=== PATIENT | male | born 1985 | race Caucasian/White ===

== ENCOUNTER 2016-08-23 06:18 | Emergency (ER) | payer BC ==
[~2016-08-23] VITALS: Ht 167.6 cm; Wt 72.2 kg
[2016-08-23 06:20] VITALS: Ht 167.6 cm; Wt 72.2 kg
--- OUTSIDE RECORDS SUMMARY | 2016-08-23 06:22 | XMS REPORT | Referral Summary ---
Author Author [facility] Organization [facility] Address Unknown Phone Unavailable Care Team Providers Care Test Man Name Role Phone Salinas Mccullough Primary Care Physician [phone] Encounter VC Date(s): 01/28/15 - 01/28/15 [facility] [address] [place] [address] A[place]NA Daugherty [address] Discharge Diagnosis: Kidney stone Discharge Diagnosis: Kidney stone on right side Discharge Disposition: 01-Home or Self Care Attending Physician: Spencer Nolasco JR, MD Vital Signs Most recent to 1 oldest [Reference Range]: Peripheral Pulse 80 bpm Rate [60-100 bpm] (01/28/15 3:44 PM) Blood Pressure 135/92 mmHg [90-140/60-90 mmHg] (01/28/15 3:44 PM) Problem List No data available for this section Allergies, Adverse Reactions, Alerts No Known Medication Allergies Medications naproxen 500 mg oral tablet 500 mg 1 tabs, Oral, BID, # 60 tabs, 0 Refill(s), Pharmacy: [facility] # [id number], 1 tabs Oral BID Start Date: 01/28/15 Status: Ordered Mobile 5 mg-325 mg oral tablet 1 tabs, Oral, q6hr, as needed for pain, # 30 tabs, 0 Refill(s) Start Date: 01/28/15 Stop Date: 02/28/15 Status: Ordered Results No data available for this section Immunizations Vaccine Date Refusal Reason hepatitis B pediatric vaccine 12/09/96 measles/mumps/rubella virus vaccine 12/09/96 poliovirus vaccine, inactivated 11/30/94 tetanus-diphth toxoids (Td) adult/adol 12/09/96 tetanus-diphth toxoids (Td) adult/adol 11/30/94 Procedures No data available for this section Social History Social History Type Response Smoking Status Former smoker; Type: Cigarettes; Number of years: 2 Assessment and Plan Extracted from: Title: Ambulatory Patient Education Author: Spencer Nolasco JR, MD Date : 01/28/15 Follow Up With: Where: When: Salinas Garcia[address]; [place] [address] Business (1) Within 3 to 5 days Comments: Follow Up With: Where: When: Spencer [address]; [place] [address] Business (1) In 1 week 02/04/2015 Comments: Extracted from: Title: Office Visit Note Author: Spencer Nolasco JR, MD Date: 01/28/15 Assessment/Plan 1.Kidney stone, Kidney stone on right side strain all urine. Drink plenty of liquids. Continue taking the Mobile if needed. Scheduled for right renal lithotripsy this coming Saturday. To call me if the stone is passed before the scheduled lithotripsy . Procedures, risks, complications, and follow-up explained to patient with verbalized understanding. Patient instructed to drink at least 8-10 glasses of liquids a day, reduce intake of caffeine and carloz red meat, nuts and too much salted food This procedurewill be done underlocal and IV sedation Ordered: Office Visit Level 4 [facility] [address]
--- OUTSIDE RECORDS SUMMARY | 2016-08-23 06:22 | XMS REPORT | Referral Summary ---
Author Author [facility] Organization [facility] Address Unknown Phone Unavailable Care Team Providers Care Knuckler Name Role Phone Salinas Mccullough Primary Care Physician [phone] Encounter VC Date(s): 01/24/16 - 01/24/16 [facility] [address] [place] [address] Discharge Diagnosis: Right shoulder tendinitis Discharge Diagnosis: Numbness in feet Discharge Disposition: 01-Home or Self Care Attending Physician: Salinas Mccullough DO Admitting Physician: Salinas Mccullough DO Vital Signs Most recent to 1 oldest [Reference Range]: Temperature Tympanic 36.3 degC [36.6-38.1 degC] *LOW* (01/24/16 3:00 PM) Peripheral Pulse 84 bpm Rate [60-100 bpm] (01/24/16 3:00 PM) Blood Pressure 137/92 mmHg [90-140/60-90 mmHg] (01/24/16 3:00 PM) Problem List No data available for this section Allergies, Adverse Reactions, Alerts No Known Medication Allergies Medications ibuprofen 0 Refill(s) Start Date: 08/29/15 Status: Ordered meloxicam 15 mg oral tablet 15 mg 1 tabs, Oral, Daily, # 30 tabs, 4 Refill(s), Pharmacy: [facility] # [id number], 1 tabs Oral Daily,x30 days Start Date: 01/24/16 Stop Date: 06/22/16 Status: Ordered Tylenol Caplet mg, Oral, q4hr, 0 Refill(s) Start Date: 05/23/15 Status: Ordered Results Hematology Most recent to 1 oldest [Reference Range]: WBC [4.8-10.8 10.1 10*3/uL 10*3/uL] (01/24/16 3:55 PM) RBC [4.60-6.20] 4.60 (01/24/16 3:55 PM) Hgb [14.0-18.0 16.0 gm/dL gm/dL] (01/24/16 3:55 PM) Hct [42.0-52.0 %] 43.8 % (01/24/16 3:55 PM) MCV [82.0-99.0 fL] 95.2 fL (01/24/16 3:55 PM) MCH [27.0-32.0 pg] 34.8 pg *HI* (01/24/16 3:55 PM) MCHC [32.0-36.0 36.5 gm/dL gm/dL] *HI* (01/24/16 3:55 PM) RDW [11.5-14.5 %] 12.5 % (01/24/16 3:55 PM) Platelet [150-400 371 10*3/uL 10*3/uL] (01/24/16 3:55 PM) MPV [8.8-14.8 fL] 10.4 fL (01/24/16 3:55 PM) Immature 0.2 % Granulocytes (01/24/16 3:55 PM) [0.0-1.0 %] Neutrophils [51-75 63 % %] (01/24/16 3:55 PM) Lymphocytes [20-46 27 % %] (01/24/16 3:55 PM) Monocytes [4-11 %] 8 % (01/24/16 3:55 PM) Eosinophils [0-4 %] 1 % (01/24/16 3:55 PM) Basophils [0-2 %] 0 % (01/24/16 3:55 PM) Neutro Absolute 6.36 10*3 [1.90-7.00 10*3] (01/24/16 3:55 PM) Lymph Absolute 2.69 10*3 [0.80-3.30 10*3] (01/24/16 3:55 PM) [place] Absolute 0.85 10*3 [0.30-1.00 10*3] (01/24/16 3:55 PM) Eos Absolute 0.11 10*3 [0.00-0.50 10*3] (01/24/16 3:55 PM) Baso Absolute 0.04 10*3 [0.00-0.20 10*3] (01/24/16 3:55 PM) Chemistry Most recent to 1 oldest [Reference Range]: Sodium Lvl [135-144 140 mEq/L mEq/L] (01/24/16 3:55 PM) Potassium Lvl 4.1 mEq/L [3.5-5.2 mEq/L] (01/24/16 3:55 PM) Chloride [99-111 103 mEq/L mEq/L] (01/24/16 3:55 PM) CO2 [23-31 mEq/L] 25 mEq/L (01/24/16 3:55 PM) AGAP [3-20] 12 (01/24/16 3:55 PM) BUN [9-21 mg/dL] 15 mg/dL (01/24/16 3:55 PM) Glucose Lvl [70-99 81 mg/dL mg/dL] (01/24/16 3:55 PM) Creatinine Lvl 0.79 mg/dL [0.72-1.25 mg/dL] (01/24/16 3:55 PM) eGFR [>60 mL/min] >60 mL/min 1 (01/24/16 3:55 PM) Calcium Lvl 10.1 mg/dL [8.9-10.5 mg/dL] (01/24/16 3:55 PM) Albumin Lvl [3.5-5.0 5.0 gm/dL gm/dL] (01/24/16 3:55 PM) Total Protein 7.7 gm/dL [6.1-7.7 gm/dL] (01/24/16 3:55 PM) Globulin [1.8-4.0 2.7 gm/dL gm/dL] (01/24/16 3:55 PM) ALT [0-55 U/L] 22 U/L (01/24/16 3:55 PM) AST [5-34 U/L] 24 U/L (01/24/16 3:55 PM) Alk Phos [40-150 72 U/L U/L] (01/24/16 3:55 PM) Bili Total [0.2-1.2 1.2 mg/dL mg/dL] (01/24/16 3:55 PM) Vitamin B12 Lvl 459 pg/mL [213-816 pg/mL] (01/24/16 3:55 PM) Folate Lvl [7.0-31.4 15.3 ng/mL ng/mL] (01/24/16 3:55 PM) TSH with Reflex Free 2.89 T4 [0.35-4.94] (01/24/16 3:55 PM) Hgb A1c [4.1-5.6 %] 5.1 % (01/24/16 3:55 PM) eAvg Glucose 99.7 mg/dL (01/24/16 3:55 PM) 1Result Comment: Multiply eGFR results by 1.21 for race. Immunizations Vaccine Date Refusal Reason hepatitis B pediatric vaccine 12/09/96 measles/mumps/rubella virus vaccine 12/09/96 poliovirus vaccine, inactivated 11/30/94 tetanus-diphth toxoids (Td) adult/adol 12/09/96 tetanus-diphth toxoids (Td) adult/adol 11/30/94 Procedures No data available for this section Social History Social History Type Response Smoking Status Former smoker; Type: Cigarettes; Number of years: 2 Assessment and Plan Extracted from: Title: Office Visit Note Author: Salinas Mccullough DO Date: 01/24/16 Assessment/Plan Numbness in feet 1. This is a complex patient presentation. 2. Screening labs ordered to rule out organic cause. 3. May need additional testing with Zinc and copper level in addition to inflammatory markers and testing for autoimmune disease. 4. May need neurology consult. 5. We may consider Nortriptyline, gabapentin or Lyrica if symptoms become bothersome. 6. This may be viral presentation. 7. Follow up in two weeks. Ordered: Vitamin D 25 Hydroxy Level Right shoulder tendinitis 1. History and exam consistent with shoulder strain vs tendinitis. 2. Meloxicam 15mg daily. 3. Stretching exercises. 4. If not improving we plan referral to PT vs shoulder specialist. Ordered: meloxicam, 15 mg 1 tabs, Oral, Daily, # 30 tabs, 4 Refill(s), Pharmacy: [facility] #[id number], 1 tabs Oral Daily,x30 days Over 50 minutes were spent with this patient today, visit required complex medical decision.
--- OUTSIDE RECORDS SUMMARY | 2016-08-23 06:22 | XMS REPORT | Referral Summary ---
Author Author [facility] Organization [facility] Address Unknown Phone Unavailable Care Team Providers Care Apprenticeship Consultant Name Role Phone Josevilla Salinas Primary Care Physician [phone] Encounter Date(s): 02/01/16 - 02/01/[address] [facility] [address] [facility] [address] [place], [place] [address] Discharge Diagnosis: Saddle anesthesia Discharge Diagnosis: Bilateral leg numbness Discharge Disposition: 01-Home or Self Care Attending Physician: Simba Richey MD Admitting Physician: Simba Richey MD Vital Signs Most recent to 1 oldest [Reference Range]: Peripheral Pulse 72 bpm Rate [60-100 bpm] (02/01/16 3:26 PM) Blood Pressure 132/90 mmHg [90-140/60-90 mmHg] (02/01/16 3:26 PM) Problem List No data available for this section Allergies, Adverse Reactions, Alerts No Known Medication Allergies Medications gabapentin 300 mg oral capsule 300 mg 1 caps, Oral, BID, # 60 caps, 0 Refill(s), Pharmacy: [facility] # [id number], 1 caps Oral BID Start Date: 01/27/16 Status: Ordered ibuprofen 0 Refill(s) Start Date: 08/29/15 Status: Ordered Tylenol Caplet mg, Oral, q4hr, 0 Refill(s) Start Date: 05/23/15 Status: Ordered Results No data available for [...] Extracted from: Title: Office Visit Note Author: Simba Richey MD Date: 02/01/16 Assessment/Plan Bilateral leg numbness, Saddle anesthesia Examinationremarkable for sensory level T10-12 suggestive of thoracic myelopathy of acute/subacute onset. Will do MRI C-T spine w and w/o no later than tomorrow. If not able to get it soon, or should he develop weakness/gait problems/bladder/bowel control issues will admit for inpatient w/u. Will contact pt tmw after MRI spine has been reviewed. If MRI spine is suggestive of demyelinating disease, MRI brain and LP will be ordered. Patient and his were encouraged to call me should he develop weakness/or bladder/bowel control problems. Possible anatomic localization and differential discussed, all questions were answered.
--- OUTSIDE RECORDS SUMMARY | 2016-08-23 06:22 | XMS REPORT | Referral Summary ---
Author Author [facility] Organization [facility] Address Unknown Phone Unavailable Care Team Providers Care Title Closer Name Role Phone Sadia Salinas Primary Care Physician [phone] Encounter VC Date(s): 02/17/16 - 02/17/[address] [facility] [address] [facility] [address] [place], [place] [address] Discharge Disposition: 01-Home or Self Care Attending Physician: Simba Richey MD Admitting Physician: Simba Richey MD Referring Physician: Simba Richey MD Vital Signs Most recent to 1 oldest [Reference Range]: Peripheral Pulse 80 bpm Rate [60-100 bpm] (02/17/16 1:14 PM) Blood Pressure 116/82 mmHg [90-140/60-90 mmHg] (02/17/16 1:14 PM) Problem List No data available for this section Allergies, Adverse Reactions, Alerts No Known Medication Allergies Medications gabapentin 300 mg oral capsule 300 mg 1 caps, Oral, BID, # 60 caps, 0 Refill(s), Pharmacy: [facility] # [id number], 1 caps Oral BID Start Date: 01/27/16 Status: Ordered Results Chemistry Most recent to 1 oldest [Reference Range]: Total Protein 7.1 gm/dL [6.1-7.7 gm/dL] (02/17/16 2:02 PM) Hep A IgM Negative (02/17/16 2:02 PM) Hep Bs Ag Negative (02/17/16 2:02 PM) Hep C Ab Negative (02/17/16 2:02 PM) Hep B Core IgM Negative (02/17/16 2:02 PM) HIV 1 and 2 Abs Negative (02/17/16 2:02 PM) Immunizations Vaccine Date Refusal Reason hepatitis B [...] Visit Note Author: Simba Richey MD Date: 02/17/16 Assessment/Plan 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 Patient has not had lab work done to rule out systemic infection or inflammatory process or metabolic changes. Recommended to stop by the lab today. Explained to the patient that after idiopathic transverse myelitis risk of recurrence or conversion to Multiple sclerosisis less than 50%, about 20-30%. He needs to complete work up to rule out secondary transverse myelitis. Recovery has been good, he has no weakness or gait problems, recommended to contact me should he develop any weakness Ordered: NIMA Screen Angiotensin Converting Enzyme-[place] Copper Level-[place] Granulocyte Antibody-[place] Hepatitis Panel HIV Antigen/Antibody HTLV-I/-II Antibody-[place] Immunoelectrophoresis, Serum NMO Evaluation w/Reflex-[place] Paraneoplastic Autoantibody Eval-[place] Sjogren's Antibody SM Autoantibody Zinc Level-[place] Time spent with the patient was25 minutes. Greater than 50% of that time was spent counseling the patient, discussing treatment plan and options, answering questions, and follow up plan.
--- OUTSIDE RECORDS SUMMARY | 2016-08-23 06:22 | XMS REPORT | Referral Summary ---
Author Author [facility] Organization [facility] Address Unknown Phone Unavailable Care Team Providers Care Delivery Consultant Name Role Phone Salinas Mccullough Primary Care Physician [phone] Encounter VC Date(s): 05/23/15 - 05/23/15 [facility] [address] [place] [address] Discharge Disposition: 01-Home or Self Care Attending Physician: Salinas Mccullough DO Admitting Physician: Salinas Mccullough DO Vital Signs Most recent to 1 oldest [Reference Range]: Temperature Tympanic 37 degC [36.6-38.1 degC] (05/23/15 8:56 AM) Peripheral Pulse 75 bpm Rate [60-100 bpm] (05/23/15 8:56 AM) Blood Pressure 139/95 mmHg [90-140/60-90 mmHg] (05/23/15 8:56 AM) Problem List No data available for this section Allergies, Adverse Reactions, Alerts No Known Medication Allergies Medications cyclobenzaprine 10 mg oral tablet 10 mg 1 tabs, Oral, Bedtime (once a day), as needed for spasm, # 30 tabs, 0 Refill(s), Pharmacy: [facility] #[id number], 1 tabs Oral Bedtime (once a day), PRN:as needed for spasm Start Date: 05/23/15 Stop Date: 06/21/15 Status: Ordered meloxicam 15 mg oral tablet 15 mg 1 tabs, Oral, Daily, # 30 tabs, 0 Refill(s), Pharmacy: [facility] # [id number], 1 tabs Oral Daily Start Date: 05/23/15 Status: Ordered Tylenol Caplet mg, Oral, q4hr, 0 Refill(s) Start Date: 05/23/15 Status: Ordered Ultram 50 mg oral tablet 50 mg 1 tabs, Oral, q6hr, as needed for pain, # 30 tabs, 0 Refill(s) Start Date: 05/23/15 Stop Date: 06/21/15 Status: Ordered Results No data available for [...] Visit Note Author: Salinas Mccullough DO Date: 05/23/15 Assessment/Plan Acute neck pain 1. Clinical findings consistent with muscle spasms. Pathophysiology of this presentation discussed in detail with the patient. 2. Discontinue ibuprofen. 3. Meloxicam 15 mg daily for 2-4 weeks. 4. Cyclobenzaprine, 10 mg at bedtime for 2-4 weeks. 5. May add Tylenol at thousand milligrams every 8 hours as needed. 6. Continue with heat compression, 20 minutes at a time, 3-4 times per day. 7. Continue with stretching exercises. 8. Ultram, 50 mg every 6 hours as needed for pain not controlled by the above. 9. Follow-up if worsening presentation or no improvement in the next 3-4 days. Ordered: cyclobenzaprine, 10 mg 1 tabs, Oral, Bedtime (once a day), as needed for spasm , # 30 tabs, 0 Refill(s), [id number], 1 tabs Oral Bedtime (once a day),PRN:as needed for spasm meloxicam, 15 mg 1 tabs, Oral, Daily, # 30 tabs, 0 Refill(s), [facility][id number], 1 tabs Oral Daily traMADol, 50 mg 1 tabs, Oral, q6hr, as needed for pain, # 30 tabs, 0 Refill(s) Office Visit Level 4 Est 17914 Osteopathic Manipulative Treatment (Omt); Three To Four Body Regions Involved 67719 Back muscle spasm As above. Ordered: cyclobenzaprine, 10 mg 1 tabs, Oral, Bedtime (once a day), as needed for spasm , # 30 tabs, 0 Refill(s), Pharmacy: [facility] #[id number], 1 tabs Oral Bedtime (once a day),PRN:as needed for spasm meloxicam, 15 mg 1 tabs, Oral, Daily, # 30 tabs, 0 Refill(s), Pharmacy: [facility] #[id number], 1 tabs Oral Daily traMADol, 50 mg 1 tabs, Oral, q6hr, as needed for pain, # 30 tabs, 0 Refill(s) Office Visit Level 4 Est 03577 Osteopathic Manipulative Treatment (Omt); Three To Four Body Regions Involved 11025 Somatic dysfunction of rib region Osteopathic manipulation was done of the cervical and upper thoracic spine in addition to the first rib on the right side. Treatment modalities consisted of soft tissue treatment, muscle energy and HVLA. Patient had improvement in his discomfort prior to dismissal. Somatic dysfunction of thoracic region As above. Ordered: cyclobenzaprine, 10 mg 1 tabs, Oral, Bedtime (once a day), as needed for spasm , # 30 tabs, 0 Refill(s), Pharmacy: [facility] #[id number], 1 tabs Oral Bedtime (once a day),PRN:as needed for spasm meloxicam, 15 mg 1 tabs, Oral, Daily, # 30 tabs, 0 Refill(s), Pharmacy: [facility] #[id number], 1 tabs Oral Daily traMADol, 50 mg 1 tabs, Oral, q6hr, as needed for pain, # 30 tabs, 0 Refill(s) Office Visit Level 4 Est 45355 Osteopathic Manipulative Treatment (Omt); Three To Four Body Regions Involved 08595 Upper back pain As above. Ordered: cyclobenzaprine, 10 mg 1 tabs, Oral, Bedtime (once a day), as needed for spasm , # 30 tabs, 0 Refill(s), Pharmacy: [facility] #[id number], 1 tabs Oral Bedtime (once a day),PRN:as needed for spasm meloxicam, 15 mg 1 tabs, Oral, Daily, # 30 tabs, 0 Refill(s), Pharmacy: [facility] #[id number], 1 tabs Oral Daily traMADol, 50 mg 1 tabs, Oral, q6hr, as needed for pain, # 30 tabs, 0 Refill(s) Office Visit Level 4 Est 56197 Osteopathic Manipulative Treatment (Omt); Three To Four Body Regions Involved [address]
--- OUTSIDE RECORDS SUMMARY | 2016-08-23 06:22 | XMS REPORT | Referral Summary ---
Author Author [facility] Organization [facility] Address Unknown Phone Unavailable Care Team Providers Care Pile Driving Nozzleman Name Role Phone Salinas Mccullough Primary Care Physician [phone] Encounter VC Date(s): 01/28/15 - 01/28/15 [facility] [address] [place] [address] Discharge Diagnosis: Acute abdominal pain in right flank Discharge Diagnosis: Right kidney stone Discharge Disposition: 01-Home or Self Care Attending Physician: Salinas Mccullough DO Admitting Physician: Salinas Mccullough DO Vital Signs Most recent to 1 oldest [Reference Range]: Temperature Tympanic 36.7 degC [36.6-38.1 degC] (01/28/15 1:01 PM) Peripheral Pulse 80 bpm Rate [60-100 bpm] (01/28/15 1:01 PM) Blood Pressure 135/92 mmHg [90-140/60-90 mmHg] (01/28/15 1:01 PM) Problem List No data available for this section Allergies, Adverse Reactions, Alerts No Known Medication Allergies Medications naproxen 500 mg oral tablet 500 mg 1 tabs, Oral, BID, # 60 tabs, 0 Refill(s), Pharmacy: [facility] # [id number], 1 tabs Oral BID Start Date: 01/28/15 Status: Ordered [place] 5 mg-325 mg oral tablet 1 tabs, Oral, q6hr, as needed for pain, # 30 tabs, 0 Refill(s) Start Date: 01/28/15 Stop Date: 02/28/15 Status: Ordered Results Hematology Most recent to 1 oldest [Reference Range]: WBC [5.0-10.0 8.3 10*3/uL 10*3/uL] (01/28/15 1:55 PM) RBC [3.70-5.20] 4.45 (01/28/15 1:55 PM) Hgb [12.0-16.0 15.5 gm/dL gm/dL] (01/28/15 1:55 PM) Hct [40.0-54.0 %] 43.1 % (01/28/15 1:55 PM) MCV [80.0-96.0 fL] 96.9 fL *HI* (01/28/15 1:55 PM) MCH [26.0-34.0 pg] 34.8 pg *HI* (01/28/15 1:55 PM) MCHC [32.0-36.0 36.0 gm/dL gm/dL] (01/28/15 1:55 PM) RDW [0.0-14.5 %] 12.2 % (01/28/15 1:55 PM) Platelet [150-400 378 10*3/uL 10*3/uL] (01/28/15 1:55 PM) MPV [8.8-14.8 fL] 9.7 fL (01/28/15 1:55 PM) Neutrophils [50-70 50 % %] (01/28/15 1:55 PM) Lymphocytes [20-40 40 % %] (01/28/15 1:55 PM) Monocytes [4-8 %] 8 % (01/28/15 1:55 PM) Eosinophils [0-6 %] 1 % (01/28/15 1:55 PM) Basophils [0-2 %] 1 % (01/28/15 1:55 PM) Neutro Absolute 4.16 10*3 [2.50-7.00 10*3] (01/28/15 1:55 PM) Lymph Absolute 3.32 10*3 [1.00-4.00 10*3] (01/28/15 1:55 PM) [place] Absolute 0.68 10*3 [0.20-0.80 10*3] (01/28/15 1:55 PM) Eos Absolute 0.10 10*3 [0.00-0.60 10*3] (01/28/15 1:55 PM) Baso Absolute 0.04 [0.00-0.30] (01/28/15 1:55 PM) Chemistry Most recent to 1 oldest [Reference Range]: Sodium Lvl [135-144 139 mEq/L mEq/L] (01/28/15 1:55 PM) Potassium Lvl 3.7 mEq/L [3.5-5.2 mEq/L] (01/28/15 1:55 PM) Chloride [99-111 105 mEq/L mEq/L] (01/28/15 1:55 PM) CO2 [23-31 mEq/L] 26 mEq/L (01/28/15 1:55 PM) AGAP [3-20] 8 (01/28/15 1:55 PM) BUN [9-21 mg/dL] 12 mg/dL (01/28/15 1:55 PM) Glucose Lvl [70-99 96 mg/dL mg/dL] (01/28/15 1:55 PM) Creatinine Lvl 0.76 mg/dL [0.72-1.25 mg/dL] (01/28/15 1:55 PM) eGFR [>60 mL/min] >60 mL/min 1 (01/28/15 1:55 PM) Calcium Lvl 10.2 mg/dL [8.9-10.5 mg/dL] (01/28/15 1:55 PM) Albumin Lvl [3.5-5.0 4.6 gm/dL gm/dL] (01/28/15 1:55 PM) Total Protein 7.3 gm/dL [6.4-8.3 gm/dL] (01/28/15 1:55 PM) Globulin [1.8-4.0 2.7 gm/dL gm/dL] (01/28/15 1:55 PM) ALT [0-55 U/L] 26 U/L (01/28/15 1:55 PM) AST [5-34 U/L] 19 U/L (01/28/15 1:55 PM) Alk Phos [40-150 70 U/L U/L] (01/28/15 1:55 PM) Bili Total [0.2-1.2 0.9 mg/dL mg/dL] (01/28/15 1:55 PM) 1Result Comment: Multiply eGFR results by 1.21 for race. Urinalysis Most recent to 1 oldest [Reference Range]: UA Color Yellow (01/28/15 2:19 PM) UA Appear Clear (01/28/15 2:19 PM) UA pH [5.0-8.0] 6.0 (01/28/15 2:19 PM) UA Leuk Est Negative [Negative] (01/28/15 2:19 PM) UA Nitrite Negative [Negative] (01/28/15 2:19 PM) UA Protein Negative [Negative] (01/28/15 2:19 PM) UA Glucose Negative [Negative] (01/28/15 2:19 PM) UA Ketones Negative [Negative] (01/28/15 2:19 PM) UA Urobilinogen 0.2 mg/dL (01/28/15 2:19 PM) UA Bili [Negative] Negative (01/28/15 2:19 PM) UA Blood Pos 1+ *ABN* (01/28/15 2:19 PM) UA Spec Grav 1.025 [1.003-1.030] (01/28/15 2:19 PM) Type Voided (01/28/15 2:19 PM) UA WBC [0-4] 0-2 (01/28/15 2:19 PM) UA RBC [0-2] 5-10 *ABN* (01/28/15 2:19 PM) Crystals Amorphous 1 (01/28/15 2:19 PM) UA Mucous Present (01/28/15 2:19 PM) 1Result Comment: Occasional Immunizations Vaccine Date Refusal Reason hepatitis B pediatric vaccine 12/09/96 measles/mumps/rubella virus vaccine 12/09/96 poliovirus vaccine, inactivated 11/30/94 tetanus-diphth toxoids (Td) adult/adol 12/09/96 tetanus-diphth toxoids (Td) adult/adol 11/30/94 Procedures Procedure Date Related Diagnosis Body Site Collection of venous blood by venipuncture 01/28/15 Social History Social History Type Response Smoking Status Former smoker; Type: Cigarettes; Number of years: 2 Assessment and Plan Extracted from: Title: Office Visit Note Author: Salinas Mccullough DO Date: 01/28/15 Assessment/Plan Acute abdominal pain in right flank Pathophysiology of this presentation, and differential diagnosis, discussed in detail with the patient. All questions were answered. 1. Imaging report and lab reviewed from [facility] . 2. KUB today demonstrate a 6 mm kidney stone on the right side. 3. UA was positive for hematuria. 4. CBC was essentially normal. 5. Complete metabolic profile is still pending. 6. His history and symptoms are consistent with kidney stone as the cause of his pain. 7. Patient was referred to urology for consideration of lithotripsy given that the stone is bigger then he will be able to pass. This was explained to the patient, he voiced understanding. 8. Naproxen 500 mg twice a day. 9. Prescription was given for [place] No. 5, one tablet every 6 hours as needed for pain not controlled by the naproxen. Prescription was given for 30 tablets without refill. 10. If his symptoms worsen over the weekend then he was instructed to go to the emergency department. 11. Over an hour was spent [id number] with this patient today to include initial assessment and reevaluation after lab and x-ray. Ordered: Comprehensive Metabolic Panel Right kidney stone As above Ordered: HYDROcodone-acetaminophen, 1 tabs, Oral, q6hr, as needed for pain, # 30 tabs, 0 Refill(s) naproxen, 500 mg 1 tabs, Oral, BID, # 60 tabs, 0 Refill(s), Pharmacy: [facility] #[id number], 1 tabs Oral BID Office Visit Level 5 Est 50708
--- OUTSIDE RECORDS SUMMARY | 2016-08-23 06:22 | XMS REPORT | Referral Summary ---
Author Author [facility] Organization [facility] Address Unknown Phone Unavailable Care Team Providers Care Well Logging Captain Name Role Phone Salinas Mccullough Primary Care Physician [phone] Encounter VC Date(s): 01/28/15 - 01/28/15 [facility] [address] [place] [address] Discharge Diagnosis: Acute abdominal pain in right [...] Reactions, Alerts No Known Medication Allergies Medications meloxicam 15 mg oral tablet 15 mg 1 tabs, Oral, Daily, # 30 tabs, 0 Refill(s), Pharmacy: [facility] # [id number], 1 tabs Oral Daily Start Date: 05/23/15 [...] 3.32 10*3 [1.00-4.00 10*3] (01/28/15 1:55 PM) [place] Absolute 0.68 10*3 [0.20-0.80 10*3] (01/28/15 1:55 [...] 1. Imaging report and lab reviewed from [facility] . 2. KUB today demonstrate a 6 [...] a day. 9. Prescription was given for [place] No. 5, one tablet every 6 hours as needed for pain not controlled by the naproxen. Prescription was given for 30 tablets without refill. 10. If his symptoms worsen over the weekend then he was instructed to go to the emergency department. 11. Over an hour was spent [id number] with this patient today to include initial assessment and reevaluation after lab and x-ray. Ordered: Comprehensive Metabolic Panel Right kidney stone As above Ordered: HYDROcodone-acetaminophen, 1 tabs, Oral, q6hr, as needed for pain, # 30 tabs, 0 Refill(s) naproxen, 500 mg 1 tabs, Oral, BID, # 60 tabs, 0 Refill(s), Pharmacy: [facility] #[id number], 1 tabs Oral BID Office Visit Level 5 Est 53854
--- OUTSIDE RECORDS SUMMARY | 2016-08-23 06:22 | XMS REPORT | Referral Summary ---
Author Author [facility] Organization [facility] Address Unknown Phone Unavailable Care Team Providers Care Veneer Clipper Name Role Phone Salinas Mccullough Primary Care Physician [phone] Encounter VC Date(s): 08/29/15 - 08/29/15 [facility] [address] [place] [address] Discharge Diagnosis: Thoracic region somatic dysfunction Discharge Diagnosis: Cervical somatic dysfunction Discharge Disposition: 01-Home or Self Care Attending Physician: Salinas Mccullough DO Admitting Physician: Salinas Mccullough DO Vital Signs Most recent to 1 oldest [Reference Range]: Peripheral Pulse 83 bpm Rate [60-100 bpm] (08/29/15 10:50 AM) Blood Pressure 130/60 mmHg [90-140/60-90 mmHg] (08/29/15 10:50 AM) SpO2 99 % (08/29/15 10:50 AM) Problem List No data available for this section Allergies, Adverse Reactions, Alerts No Known Medication Allergies Medications cyclobenzaprine 10 mg oral tablet 10 mg 1 tabs, Oral, BID, as needed for spasm, X 15 days, # 30 tabs, 0 Refill(s) , Pharmacy: [facility] #[id number], 1 tabs Oral BID,x15 days,PRN:as needed for spasm Start Date: 08/29/15 Stop Date: 09/13/15 Status: Ordered ibuprofen 0 Refill(s) Start Date: 08/29/15 Status: Ordered meloxicam 15 mg oral tablet 15 mg 1 tabs, Oral, Daily, # 30 tabs, 0 Refill(s), Pharmacy: [id number] # [id number], 1 tabs Oral Daily Start Date: 08/29/15 Status: Ordered [place] 5 mg-325 mg oral tablet 1 tabs, Oral, q6hr, as needed for pain, # 30 tabs, 0 Refill(s) Start Date: 08/29/15 Stop Date: 09/29/15 Status: Ordered Tylenol Caplet mg, Oral, q4hr, [...] Visit Note Author: Salinas Mccullough DO Date: 08/29/15 Assessment/Plan Back pain 1. Clinical finding consistent with muscle spasms of the cervical and thoracic paraspinal muscles mainly in the right side. 2. Cyclobenzaprine 10 mg twice a day for 2 weeks. 3. Meloxicam 15 mg daily for 2-4 weeks. 4. [place] No. 5, one tablet every 6 hours as needed for pain not controlled by the above. 5. Referral to physical therapy for evaluation and treatment of cervical and thoracic pain. Ordered: cyclobenzaprine, 10 mg 1 tabs, Oral, BID, as needed for spasm, X 15 days, # 30 tabs, 0 Refill(s), Pharmacy: [facility] #[id number], 1 tabs Oral BID,x15 days, PRN:as needed for spasm HYDROcodone-acetaminophen, 1 tabs, Oral, q6hr, as needed for pain, # 30 tabs, 0 Refill(s) meloxicam, 15 mg 1 tabs, Oral, Daily, # 30 tabs, 0 Refill(s), Pharmacy: [id number] #[id number], 1 tabs Oral Daily Office Visit Level 3 Est 19568 Osteopathic Manipulative Treatment (Omt); Three To Four Body Regions Involved 79388 Cervical somatic dysfunction 1. OMT done of the cervical and thoracic spine with treatment modalities to include soft tissue treatment, muscle energy and HVLA. Muscle spasms of neck As above. Ordered: cyclobenzaprine, 10 mg 1 tabs, Oral, BID, as needed for spasm, X 15 days, # 30 tabs, 0 Refill(s), Pharmacy: [facility] #[id number], 1 tabs Oral BID,x15 days, PRN:as needed for spasm HYDROcodone-acetaminophen, 1 tabs, Oral, q6hr, as needed for pain, # 30 tabs, 0 Refill(s) meloxicam, 15 mg 1 tabs, Oral, Daily, # 30 tabs, 0 Refill(s), Pharmacy: [facility] #[id number], 1 tabs Oral Daily Office Visit Level 3 Est 90010 Osteopathic Manipulative Treatment (Omt); Three To Four Body Regions Involved 63971 Neck pain on right side As above. Ordered: cyclobenzaprine, 10 mg 1 tabs, Oral, BID, as needed for spasm, X 15 days, # 30 tabs, 0 Refill(s), Pharmacy: [facility] #[id number], 1 tabs Oral BID,x15 days, PRN:as needed for spasm HYDROcodone-acetaminophen, 1 tabs, Oral, q6hr, as needed for pain, # 30 tabs, 0 Refill(s) meloxicam, 15 mg 1 tabs, Oral, Daily, # 30 tabs, 0 Refill(s), Pharmacy: [facility] #[id number], 1 tabs Oral Daily Office Visit Level 3 Est 56851 Osteopathic Manipulative Treatment (Omt); Three To Four Body Regions Involved 00907 Thoracic region somatic dysfunction As above.
--- OUTSIDE RECORDS SUMMARY | 2016-08-23 06:22 | XMS REPORT | Referral Summary ---
Author Author [facility] Organization [facility] Address Unknown Phone Unavailable Care Team Providers Care Improvement Engineer Name Role Phone Salinas Mccullough Primary Care Physician [phone] Encounter VC Date(s): 01/26/16 - 01/26/16 [facility] [address] [place] [address] [place] [id number] Discharge Diagnosis: Neuropathy, lumbosacral (radicular) Discharge Disposition: 01-Home or Self Care Attending Physician: Salinas Mccullough DO Admitting Physician: Salinas Mccullough DO Vital Signs Most recent to 1 oldest [Reference Range]: Temperature Tympanic 36.8 degC [36.6-38.1 degC] (01/26/16 11:21 AM) Peripheral Pulse 88 bpm Rate [60-100 bpm] (01/26/16 11:21 AM) Respiratory Rate 17 br/min [14-20 br/min] (01/26/16 11:21 AM) Blood Pressure 120/80 mmHg [90-140/60-90 mmHg] (01/26/16 11:21 AM) SpO2 97 % (01/26/16 11:21 AM) Problem List No data available for this section Allergies, Adverse Reactions, Alerts No Known Medication Allergies Medications ibuprofen 0 Refill(s) Start Date: 08/29/15 Status: Ordered meloxicam 15 mg oral tablet 15 mg 1 tabs, Oral, Daily, # 30 tabs, 4 Refill(s), Pharmacy: [facility] # [id number], 1 tabs Oral Daily,x30 days Start Date: [...] Visit Note Author: Salinas Mccullough DO Date: 01/26/16 Assessment/Plan 1.Neuropathy, lumbosacral (radicular) 1. Recent labs reviewed in detail with patient. Values were all essentially normal. 2. The distribution of his numbness raises concerns for lesion at the level of L4-S1 base on the dermatomal distribution of his symptoms. 3. MRI of theLumbar spine order for later today and is pending. 4. EMG studies of lower exts wereordered and are pending. 5. Based on the MRI report, he may not need the EMG, we will notify the patient as soon as report is available. 6. Patient advised to follow up in the ER immediately if he is unable to void or starts developing weakness to lower exts. He voice understanding. 7. Patient may need neurosurgical consult. Ordered: Office Visit Level 4 Est 43081
--- OUTSIDE RECORDS SUMMARY | 2016-08-23 06:22 | XMS REPORT | Referral Summary ---
Author Author [facility] Organization [facility] Address Unknown Phone Unavailable Care Team Providers Care Shaper Set Up Operator Name Role Phone Salinas Mccullough Primary Care Physician [phone] Encounter VC Date(s): 01/28/15 - 01/28/15 [facility] [address] [place] [address] [place] [address] Discharge Diagnosis: Kidney stone Discharge Diagnosis: Kidney [...] Daily, # 30 tabs, 0 Refill(s), Pharmacy: [facility] # [id number], 1 tabs Oral Daily Start Date: 05/23/15 [...] 01/28/15 Follow Up With: Where: When: Salinas Mccullough [address] [place] [address]; Via [place], [place] [id number] Business (1) Within 3 to 5 days Comments: Follow Up With: Where: When: Spencer Nolasco [address] [place] [address] Drive; Via [facility] [place] [address] Business (1) In 1 week 02/04/2015 Comments: Extracted from: Title: Office Visit Note Author: Spencer Nolasco JR, MD Date: 01/28/15 Assessment/Plan 1.Kidney stone, Kidney stone on right side strain all urine. Drink plenty of liquids. Continue taking the [place] if needed. Scheduled for right renal lithotripsy [...] IV sedation Ordered: Office Visit Level 4 New [address]4750
--- OUTSIDE RECORDS SUMMARY | 2016-08-23 06:22 | XMS REPORT | Referral Summary ---
Author Author [facility] Organization [facility] Address Unknown Phone Unavailable Care Team Providers Care Flatbed Driver Name Role Phone Salinas Mccullough Primary Care Physician [phone] Encounter VC Date(s): 02/17/15 - 02/17/15 [facility] [address] [place] [address] [place] [id number] Discharge Disposition: 01-Home or Self Care Attending Physician: Spencer Nolasco JR, MD Admitting Physician: Spencer Nolasco JR, MD Referring Physician: Salinas Mccullough DO Vital Signs Most recent to 1 oldest [Reference Range]: Peripheral Pulse 80 bpm Rate [60-100 bpm] (02/17/15 9:53 AM) Blood Pressure 118/82 mmHg [90-140/60-90 mmHg] (02/17/15 9:53 AM) Problem List No data available for this section Allergies, Adverse Reactions, Alerts No Known Medication Allergies Medications No Known Medications Results No data available for this section [...] Author: Spencer Nolasco JR, MD Date : 02/17/15 Family Medicine Kidney Stones Kidney stones (urolithiasis) are deposits that form inside your kidneys. The intense pain is caused by the stone moving through the urinary tract. When the stone moves, the ureter goes into spasm around the stone. The stone is usually passed in the urine. CAUSES A disorder that makes certain neck glands produce too much parathyroid hormone (primary hyperparathyroidism). A buildup of uric acid crystals, similar to gout in your joints. Narrowing (stricture) of the ureter. A kidney obstruction present at (congenital obstruction). Previous surgery on the kidney or ureters. Numerous kidney infections. SYMPTOMS Feeling sick to your stomach (nauseous). Throwing up (vomiting). Blood in the urine (hematuria). Pain that usually spreads (radiates) to the groin. Frequency or urgency of urination. DIAGNOSIS Taking a history and physical exam. Blood or urine tests. CT scan. Occasionally, an examination of the inside of the urinary bladder ( cystoscopy) is performed. TREATMENT Observation. Increasing your fluid intake. Extracorporeal shock wave lithotripsyThis is a noninvasive procedure that uses shock waves to break up kidney stones. Surgery may be needed if you have severe pain or persistent obstruction. There are various surgical procedures. Most of the procedures are performed with the use of small instruments. Only small incisions are needed to accommodate these instruments, so recovery time is minimized. The size, location, and chemical composition are all important variables that will determine the proper choice of action for you. Talk to your health care provider to better understand your situation so that you will minimize the risk of injury to yourself and your kidney. HOME CARE INSTRUCTIONS Drink enough water and fluids to keep your urine clear or pale yellow. This will help you to pass the stone or stone fragments. Strain all urine through the provided strainer. Keep all particulate matter and stones for your health care provider to see. The stone causing the pain may be as small as a grain of salt. It is very important to use the strainer each and every time you pass your urine. The collection of your stone will allow your health care provider to analyze it and verify that a stone has actually passed. The stone analysis will often identify what you can do to reduce the incidence of recurrences. Only take [id number] or prescription medicines for pain, discomfort, or fever as directed by your health care provider. Make a follow-up appointment with your health care provider as directed. Get follow-up X-rays if required. The absence of pain does not always mean that the stone has passed. It may have only stopped moving. If the urine remains completely obstructed, it can cause loss of kidney function or even complete destruction of the kidney. It is your responsibility to make sure X- rays and follow-ups are completed. Ultrasounds of the kidney can show blockages and the status of the kidney. Ultrasounds are not associated with any radiation and can be performed easily in a matter of minutes. SEEK MEDICAL CARE IF: You experience pain that is progressive and unresponsive to any pain medicine you have been prescribed. SEEK IMMEDIATE MEDICAL CARE IF: Pain cannot be controlled with the prescribed medicine. You have a fever or shaking chills. The severity or intensity of pain increases over 18 hours and is not relieved by pain medicine. You develop a new onset of abdominal pain. You feel faint or pass out. You are unable to urinate. MAKE SURE YOU: Understand these instructions. Will watch your condition. Will get help right away if you are not doing well or get worse. Document Released: 04/08/2006 Document Revised: 12/09/2013 Document Reviewed: [facility] Patient Information 2015 [place]. This information is not intended to replace advice given to you by your health care provider. Make sure you discuss any questions you have with your health care provider. Follow Up With: Where: When: Spencer Nolasco [address] [place] [address] Drive; [place] [address] [employer] [place] [employer] (1) In 6 months 08/19/2015 Comments: Follow Up With: Where: When: [place] [address]; [place] [address] [place] (1) Within 3 to 5 days Comments: Extracted from: Title: Office Visit Note Author: Spencer Nolasco JR, MD Date: 02/17/15 Assessment/Plan Kidney stone status post right ureteral lithotripsy. I reviewed the images of a KUB x-ray done today and I could not see any stone on the right kidney. I will see this patient again in 6 months. Patient is given instructions to drink at least 8-10 glasses of liquids a day , reduce intake of caffeine red meat nuts and too much salted food Ordered: Postoperative Est 51174
--- OUTSIDE RECORDS SUMMARY | 2016-08-23 06:22 | XMS REPORT | Referral Summary ---
Author Author [facility] Organization [facility] Address Unknown Phone Unavailable Care Team Providers Care Patent Prosecution Paralegal Name Role Phone JoseSalinas driver Primary Care Physician [phone] Encounter VC Date(s): 02/14/16 - 02/14/16 [facility] [address] [place] [address] [phone] Discharge Disposition: 01-Home or Self Care Attending Physician: Simba Richey MD Admitting Physician: Simba Richey MD Vital Signs Most recent to 1 oldest [Reference Range]: Temperature Skin 36.6 degC [36-37 degC] (02/14/16 2:25 PM) Peripheral Pulse 84 bpm Rate [60-100 bpm] (02/14/16 2:25 PM) Respiratory Rate 20 br/min [14-20 br/min] (02/14/16 2:25 PM) Blood Pressure 121/82 mmHg [90-140/60-90 mmHg] (02/14/16 2:25 PM) SpO2 97 % (02/14/16 10:40 AM) Problem List No data available for this section Allergies, Adverse Reactions, Alerts No Known Medication Allergies Medications gabapentin 300 mg oral capsule 300 mg 1 caps, Oral, BID, # 60 caps, 0 Refill(s), Pharmacy: [facility] # [id number], 1 caps Oral BID Start Date: 01/27/16 Status: Ordered Results Hematology Most recent to 1 oldest [Reference Range]: WBC [4.8-10.8 7.6 10*3/uL 10*3/uL] (02/14/16 9:04 AM) RBC [4.60-6.20] 4.65 (02/14/16 9:04 AM) Hgb [14.0-18.0 16.6 gm/dL gm/dL] (02/14/16 9:04 AM) Hct [42.0-52.0 %] 45.6 % (02/14/16 9:04 AM) MCV [82.0-99.0 fL] 98.1 fL (02/14/16 9:04 AM) MCH [27.0-32.0 pg] 35.7 pg *HI* (02/14/16 9:04 AM) MCHC [32.0-36.0 36.4 gm/dL gm/dL] *HI* (02/14/16 9:04 AM) RDW [11.5-14.5 %] 12.9 % (02/14/16 9:04 AM) Platelet [150-400 360 10*3/uL 10*3/uL] (02/14/16 9:04 AM) MPV [9.4-12.3 fL] 10.3 fL (02/14/16 9:04 AM) Immature 0.1 % Granulocytes (02/14/16:04 AM) [0.0-1.0 %] Neutrophils [51-75 62 % %] (02/14/16 9:04 AM) Lymphocytes [20-46 28 % %] (02/14/16 9:04 AM) Monocytes [4-11 %] 7 % (02/14/16 9:04 AM) Eosinophils [0-4 %] 2 % (02/14/16 9:04 AM) Basophils [0-2 %] 1 % (02/14/16 9:04 AM) Neutro Absolute 4.72 10*3 [1.90-7.00 10*3] (02/14/16 9:04 AM) Lymph Absolute 2.12 10*3 [0.80-3.30 10*3] (02/14/16 9:04 AM) [place] Absolute 0.56 10*3 [0.30-1.00 10*3] (02/14/16 9:04 AM) Eos Absolute 0.14 10*3 [0.00-0.50 10*3] (02/14/16 9:04 AM) Baso Absolute 0.05 10*3 [0.00-0.20 10*3] (02/14/16 9:04 AM) Nucleated RBC 0.0 /100 WBC Automated [0 /100 (02/14/16 9:04 AM) WBC] Coagulation Most recent to 1 oldest [Reference Range]: INR [0.9-1.2] 1.0 (02/14/16 9:05 AM) PTT [25.0-35.0 29.9 seconds seconds] (02/14/16 9:05 AM) Microbiology Reports TEST: Cerebrospinal Fluid Culture and Smear STATUS: Order in Progress BODY SITE: SOURCE: Cerebrospinal Fluid COLLECTED DATE/TIME: 02/14/16 10:00 AM Gram Smear No white blood cells No microorganisms observed OIF=Oil Immersion Field LPF=Low Power Field Immunizations Vaccine Date Refusal Reason hepatitis B pediatric vaccine 12/09/96 measles/mumps/rubella virus vaccine 12/09/96 poliovirus vaccine, inactivated 11/30/94 tetanus-diphth toxoids (Td) adult/adol 12/09/96 tetanus-diphth toxoids (Td) adult/adol 11/30/94 Procedures Procedure Date Related Diagnosis Body Site Spinal puncture, lumbar, diagnostic.. 02/14/16 Social History Social History Type Response Smoking Status Former smoker; Type: Cigarettes; Number of years: 2 Assessment and Plan No data available for this section
--- OUTSIDE RECORDS SUMMARY | 2016-08-23 06:22 | XMS REPORT | Referral Summary ---
Author Author [facility] Organization [facility] Address Unknown Phone Unavailable Care Team Providers Care U.[place]. Representative Name Role Phone Salinas Mccullough Primary Care Physician [phone] Encounter VC Date(s): 02/02/15 - 02/02/15 [facility] [address] [place] [address] AYANNA Daugherty [id number] Discharge Disposition: 01-Home or Self Care Attending Physician: Spencer Nolasco JR, MD Admitting Physician: Spencer Nolasco JR, MD Vital Signs No data available for this section Problem List No data available for this section Allergies, Adverse Reactions, Alerts No Known Medication Allergies Medications meloxicam 15 mg oral tablet 15 mg 1 tabs, Oral, Daily, # 30 tabs, 0 Refill(s), Pharmacy: [facility] # [id number], 1 tabs Oral Daily Start Date: 05/23/15 Status: Ordered Tylenol Caplet mg, Oral, q4hr, 0 Refill(s) Start Date: 05/23/15 Status: Ordered Results No data available for this section Immunizations Vaccine Date Refusal Reason hepatitis B pediatric vaccine 12/09/96 measles/mumps/rubella virus vaccine 12/09/96 poliovirus vaccine, inactivated 11/30/94 tetanus-diphth toxoids (Td) adult/adol 12/09/96 tetanus-diphth toxoids (Td) adult/adol 11/30/94 Procedures Procedure Date Related Diagnosis Body Site Lithotripsy, extracorporeal shock wave.. 02/02/15 Social History Social History Type Response Smoking Status Former smoker; Type: Cigarettes; Number of years: 2 Assessment and Plan No data available for this section
--- OUTSIDE RECORDS SUMMARY | 2016-08-23 06:22 | XMS REPORT | Referral Summary ---
Author Author [facility] Organization [facility] Address Unknown Phone Unavailable Care Team Providers Care Sod Farmer Name Role Phone Salinas Mccullough Primary Care Physician [phone] Encounter VC Date(s): 02/17/15 - 02/17/15 [facility] [address] [place] [address] AYANNA Daugherty [id number] Discharge Disposition: 01-Home or Self Care [...] # 30 tabs, 0 Refill(s) , Pharmacy: [facility] #[id number], 1 tabs Oral BID,x15 days,PRN:as needed for spasm Start Date: 08/29/15 Stop Date: 09/13/15 Status: Ordered ibuprofen 0 Refill(s) Start Date: 08/29/15 Status: Ordered meloxicam 15 mg oral tablet 15 mg 1 tabs, Oral, Daily, # 30 tabs, 0 Refill(s), Pharmacy: [facility] # [id number], 1 tabs Oral Daily Start Date: 08/29/15 Status: Ordered [place] 5 mg-325 mg oral tablet 1 tabs, [...] reduce the incidence of recurrences. Only take [id number] or prescription medicines for pain, discomfort, or [...] Released: 04/08/2006 Document Revised: 12/09/2013 Document Reviewed: ExitCare Patient Information 2015 [employer]. This information is not intended to replace advice given to you by your health care provider. Make sure you discuss any questions you have with your health care provider. Follow Up With: Where: When: Spencer Nolasco [address] [place] [address] Drive; [place] [address] Business (1) In 6 months 08/19/2015 Comments: Follow Up With: Where: When: [address]; [facility] AYANNA Galvez [id number] Business (1) Within 3 to 5 days [...] too much salted food Ordered: Postoperative Est [id number]
--- OUTSIDE RECORDS SUMMARY | 2016-08-23 06:23 | XMS REPORT | Continuity of Care Document ---
Author Author [facility] Organization [facility] Address Unknown Phone Unavailable Allergies Active Description Code Type Severity Reaction Onset Reported/Identified Relationship to Patient Clinical Status Yes No Known Medication Allergies NKMA N/A N/A 01/28/2015 Medications Problems Procedures Results Test Result Range CBC With Platelet and Differential - 01/24/16 15:55 Absolute Basophils 0.04 10*3 0.00-0.20 Absolute Eosinophils 0.11 10*3 0.00-0.50 Absolute Lymphocytes 2.69 10*3 0.80-3.30 Absolute Monocytes 0.85 10*3 0.30-1.00 Absolute Neutrophils 6.36 10*3 1.90-7.00 Basophils 0 % 0-2 Eosinophils 1 % 0-4 HCT 43.8 % 42.0-52.0 HGB 16.0 g/dL 14.0-18.0 Immature Granulocytes 0.2 % 0.0-1.0 Lymphocytes 27 % 20-46 MCH 34.8 pg 27.0-32.0 MCHC 36.5 g/dL 32.0-36.0 MCV 95.2 fL 82.0-99.0 Monocytes 8 % 4-11 MPV 10.4 fL 8.8-14.8 Neutrophils 63 % 51-75 Platelet Count 371 K/uL 150-400 RBC 4.60 10*6/uL 4.60-6.20 RDW 12.5 % 11.5-14.5 WBC 10.1 K/uL 4.8-10.8 Comprehensive Metabolic Panel (CMP) - 01/24/16 15:55 Albumin 5.0 g/dL 3.5-5.0 Alkaline Phosphatase 72 U/L 40-150 ALT (SGPT) 22 U/L 0-55 Anion Gap 12 NA 3-20 AST (SGOT) 24 U/L 5-34 Bilirubin Total 1.2 mg/dL 0.2-1.2 BUN 15 mg/dL 9-21 Calcium 10.1 mg/dL 8.9-10.5 Chloride 103 mEq/L 99-111 CO2 25 mEq/L 23-31 Creatinine 0.79 mg/dL 0.72-1.25 Globulin 2.7 g/dL 1.8-4.0 Glucose 81 mg/dL 70-99 Potassium 4.1 mEq/L 3.5-5.2 Protein 7.7 g/dL 6.1-7.7 Sodium 140 mEq/L 135-144 eGFR - 01/24/16 15:55 eGFR >60 mL/min >60 TSH with Reflex Free T4 - 01/24/16 15:55 TSH with Reflex Free T4 2.89 uIU/mL 0.35- 4.94 B12 and Folate - 01/24/16 15:55 Folate 15.3 ng/mL 7.0-31.4 Vitamin B12 459 pg/mL 213-816 Hemoglobin A1C - 01/24/16 15:55 Hemoglobin A1C 5.1 % 4.1-5.6 Estimated Average Glucose - 01/24/16 15:55 Estimated Average Glucose 99.7 mg/dL C-Reactive Protein - 01/24/16 15:55 C-Reactive Protein <0.5 mg/dL <0.5 Sedimentation Rate - 01/24/16 15:55 Sedimentation Rate 3 mm/h 0-15 RPR - 01/24/16 15:55 RPR Non-reactive NA Vitamin D, 25-Hydroxy - 01/24/16 15:55 25-Hydroxy D Total 43 ng/mL 30-74 25-Hydroxy D2 <7 ng/mL 25-Hydroxy D3 43 ng/mL CBC With Platelet and Differential - 02/14/16 09:04 Absolute Basophils 0.05 10*3 0.00-0.20 Absolute Eosinophils 0.14 10*3 0.00-0.50 Absolute Lymphocytes 2.12 10*3 0.80-3.30 Absolute Monocytes 0.56 10*3 0.30-1.00 Absolute Neutrophils 4.72 10*3 1.90-7.00 Basophils 1 % 0-2 Eosinophils 2 % 0-4 HCT 45.6 % 42.0-52.0 HGB 16.6 g/dL 14.0-18.0 Immature Granulocytes 0.1 % 0.0-1.0 Lymphocytes 28 % 20-46 MCH 35.7 pg 27.0-32.0 MCHC 36.4 g/dL 32.0-36.0 MCV 98.1 fL 82.0-99.0 Monocytes 7 % 4-11 MPV 10.3 fL 9.4-12.3 Neutrophils 62 % 51-75 Nucleated RBC Automated 0.0 /100 WBC Platelet Count 360 K/uL 150-400 RBC 4.65 10*6/uL 4.60-6.20 RDW 12.9 % 11.5-14.5 WBC 7.6 K/uL 4.8-10.8 PTT/PT (INR) - 02/14/16 09:05 INR 1.0 NA 0.9-1.2 Lyme Disease Serology, CSF - 02/14/16 10:00 Lyme Disease Serology, CSF Negative NA Negative Multiple Sclerosis Profile - 02/14/16 10:00 IgG, CSF 2.7 mg/dL <=8.1 VDRL, CSF - 02/14/16 10:00 VDRL, CSF Negative NA Negative Angiotensin Converting Enzyme CSF - 02/14/16 10:00 Angiotensin Converting Enzyme CSF 1.4 U/L 0.0-2.5 NMO-IgG, CSF - 02/14/16 10:00 NMO-IgG, CSF Negative NA Negative Paraneoplastic AAB Eval, CSF - 02/14/16 10:00 AGNA-1, CSF Negative titer <1:2 Amphiphysin Ab, CSF Negative titer <1:2 CABRERA-1, CSF Negative titer <1:2 CABRERA-2, CSF Negative titer <1:2 CABRERA-3, CSF Negative titer <1:2 CRMP-5-IgG, CSF Negative titer <1:2 CLOTHES DRIER ASSEMBLER-1, CSF Negative titer <1:2 CLOTHES DRIER ASSEMBLER-2, CSF Negative titer <1:2 CLOTHES DRIER ASSEMBLER-Tr, CSF Negative titer <1:2 Paraneoplastic Interpretation, CSF SEE BELOW NA Reflex Added None. NA VICENTE - 02/17/16 14:02 VICENTE 25 U/L 8 - 53 Copper, Serum - 02/17/16 14:02 Copper, S 0.94 mcg/mL Zinc, Serum - 02/17/16 14:02 Zinc, S 0.68 mcg/mL HTLV I/II Ab - 02/17/16 14:02 HTLV I/II Ab Negative NA Negative NMO Evaluation - 02/17/16 14:02 NMO/AQP4 IgG Negative NA Negative Granulocyte Ab - 02/17/16 14:02 Granulocyte Ab Negative NA Paraneoplastic AAB Eval S - 02/17/16 14:02 Interpretive comments SEE BELOW NA ACh Ganglionic Neur Ab 0.00 nmol/L <= 0.02 ACh Rec. Binding Ab 0.00 nmol/L <=0.02 AGNA-1 Negative titer <1:240 Amphiphysin Ab, S Negative titer <1:240 CABRERA-1, Serum Negative titer <1:240 CABRERA-2, Serum Negative titer <1:240 CABRERA-3, Serum Negative titer <1:240 CRMP-5-IgG, S Negative titer <1:240 Neuronal (V-G) K+ Channel AB 0.00 nmol/L <=0.02 N-Type Ca Channel Ab 0.01 nmol/L <=0.03 P/Q Ca Channel Ab 0.00 nmol/L <=0.02 CLOTHES DRIER ASSEMBLER-1, Serum Negative titer <1:240 CLOTHES DRIER ASSEMBLER-2, Serum Negative titer <1:240 CLOTHES DRIER ASSEMBLER-Tr, Serum Negative titer <1:240 Striational Ab, S Negative titer <1:120 Reflex test added None. NA Encounters ACCT No. Visit Date/Time Discharge Status Pt. Type Provider Facility Loc./Unit Complaint [id number] 02/17/2016 12:56:00 2015 23:59:00 DIS Outpatient Simba Richey [facility] N SF Neuro FOLLOW UP AFTER LP [id number] 02/01/2016 15:23:00 2015 23:59:00 DIS Outpatient Simba Richey [facility] N SF Neuro NPV NUMBNESS [place] B[address] DR DEGROOT [id number] 01/26/2016 11:19:00 2015 23:59:00 DIS Outpatient Salinas Degroot [facility] New FM numbness tingling [id number] 01/24/2016 14:51:00 2015 23:59:00 DIS Outpatient Salinas Degroot [facility] New FM TCPA FEET NUMBNESS AND TINGL[place] X3 DAYS [id number] 08/29/2015 10:49:00 2015 23:59:00 DIS Outpatient Salinas Degroot [facility] New FM neck and back pain [id number] 02/17/2015 09:36:00 2014 23:59:00 DIS Outpatient Spencer Nolasco [facility] New Uro post op [id number] 01/28/2015 15:09:00 2014 23:59:59 CLS Outpatient Spencer Nolasco [facility] New Uro abdominal pain [id number] 01/28/2015 12:50:00 2014 23:59:59 CLS Outpatient Salinas Degroot [facility] New FM NPT EST CARE ABD PAIN [id number] 02/14/2016 08:27:00 Document Registration [id number] 05/23/2015 08:53:00 ACT Outpatient Salinas Degroot [facility] New FM neck and back pain
--- NOTE | 2016-08-23 06:28 | NUR ---
REPORT TO BRENDA CROSS
--- NOTE | 2016-08-23 06:34 | NUR ---
DR CHAPARRO IN
[2016-08-23] MEDS ORDERED: NORMAL SALINE 1,000 ML IV ONE (06:45)
[2016-08-23 06:47] LABS: BLOOD, URINE 3+ (NEGATIVE); COLOR,URINE YELLOW (YELLOW); LEUKOCYTE ESTERASE ,URINE NEGATIVE (NEGATIVE); NITRITE,URINE NEGATIVE (NEGATIVE); UROBILINOGEN,URINE 0.2 EU/DL (NORMAL)
[2016-08-23 06:49] LABS: BASOPHILS % (AUTO) 0.4 % (0-2); EOSINOPHILS # (AUTO) 0.2 T/MM3 (0-0.5); EOSINOPHILS % (AUTO) 2.3 % (0-4); HCT - HEMATOCRIT 44.8 % (41-53); IMMATURE GRANULOCYTE # (AUTO) 0.01 T/MM3 (0.00-0.03); IMMATURE GRANULOCYTE % (AUTO) 0.1 % (0.0-0.5); LYMPHOCYTES # (AUTO) 2.5 T/MM3 (1-4.8); MEAN CORPUSCULAR HGB CONC(MCHC 35.7 GM/DL (31-37); MEAN PLATELET VOLUME 10.1 UM3 (9.4-12.4); MONOCYTES # (AUTO) 0.5 T/MM3 (0-0.8); MONOCYTES % (AUTO) 6.4 % (0-9.0); NEUTROPHILS #(AUTO)-ABSOLUTE 4.6 T/MM3 (1.8-7.7); NEUTROPHILS % (AUTO) 58.8 % (33-66); RED BLOOD COUNT 4.57 M/MM3 (4.50-5.90); WBC - WHITE BLOOD COUNT 7.8 T/MM3 (4.5-11.0)
[2016-08-23 06:57] LABS: ALBUMIN 4.5 G/DL (3.5-5.0); ALBUMIN/GLOBULIN RATIO 1.4 RATIO (1.1-2.2); ALKALINE PHOSPHATASE 76 U/L (38-126); ALT (SGPT) 47 U/L (21-72); ANION GAP 14 MEQ/L (5-15); AST (SGOT) 24 U/L (17-59); BUN/CREATININE RATIO 19 RATIO (6-26); CALCIUM 9.4 MG/DL (8.4-10.2); CHLORIDE 105 MEQ/L (98-107); CO2 - CARBON DIOXIDE 28 MEQ/L (22-30); CREATININE 0.7 MG/DL (0.8-1.5); GLOMERULAR FILTRATION RATE 132; GLUCOSE 116 MG/DL (75-110); POTASSIUM 4.2 MEQ/L (3.6-5); SODIUM 147 MEQ/L (134-144); TOTAL PROTEIN 7.7 G/DL (6.3-8.2)
--- NOTE | 2016-08-23 07:03 | NUR ---
RETURNED FROM RADIOLOGY
[2016-08-23 07:04] LABS: BACTERIA,URINE NEGATIVE (NEGATIVE); CALCIUM OXALATE CRYSTALS,UR MODERATE; MUCUS,URINE PRESENT
--- OUTSIDE RECORDS SUMMARY | 2016-08-23 07:10 | XMS REPORT | Continuity of Care Document ---
Author Author [facility] Organization [facility] Address Unknown Phone Unavailable Allergies Active Description [...] titer <1:2 CRMP-5-IgG, CSF Negative titer <1:2 POTABLE WATER TREATMENT OPERATOR-1, CSF Negative titer <1:2 POTABLE WATER TREATMENT OPERATOR-2, CSF Negative titer <1:2 POTABLE WATER TREATMENT OPERATOR-Tr, CSF Negative titer <1:2 Paraneoplastic Interpretation, CSF [...] P/Q Ca Channel Ab 0.00 nmol/L <=0.02 POTABLE WATER TREATMENT OPERATOR-1, Serum Negative titer <1:240 POTABLE WATER TREATMENT OPERATOR-2, Serum Negative titer <1:240 POTABLE WATER TREATMENT OPERATOR-Tr, Serum Negative titer <1:240 Striational Ab, S Negative titer <1:120 Reflex test added None. NA Encounters ACCT No. Visit Date/Time Discharge Status Pt. Type Provider Facility Loc./Unit Complaint [id number] 02/17/2016 12:56:00 2015 23:59:00 DIS Outpatient Simba Richey [facility] N SF Neuro FOLLOW UP AFTER LP [id number] 02/01/2016 15:23:00 2015 23:59:00 DIS Outpatient Simba Richey [facility] N SF Neuro NPV NUMBNESS [place] [address] DR DEGROOT [id number] 01/26/2016 11:19:00 2015 23:59:00 DIS Outpatient Salinas Degroot [facility] New FM numbness tingling [id number] 01/24/2016 14:51:00 2015 23:59:00 DIS Outpatient Salinas Degroot [facility] New FM TCPA FEET NUMBNESS AND TINGLING X3 DAYS [id number] 08/29/2015 10:49:00 2015 23:59:00 DIS Outpatient Salinas Degroot [facility] New FM neck and back pain [id number] 02/17/2015 09:36:00 2014 23:59:00 DIS Outpatient Spencer Nolasco [facility] New Uro post op [id number] 01/28/2015 15:09:00 2014 23:59:59 CLS Outpatient Spencer Nolasco [facility] New Uro abdominal pain [id number] 01/28/2015 12:50:00 2014 23:59:59 CLS Outpatient Salinas Degroot [facility] New FM NPT EST CARE ABD PAIN [id number] 02/14/2016 08:27:00 Document Registration [id number] 05/23/2015 08:53:00 ACT Outpatient Salinas Degroot [facility] New FM neck and back pain
--- NOTE | 2016-08-23 07:44 | ERPDOC ---
Departure Disposition Decision Date: August 23, 2016 Disposition Decision Time: 07:56 Disposition: 01 DISCHARGED HOME, SELF-CARE Impression Impression Impression: Primary Impression: Kidney stone Additional Impression: Abdominal pain Abdominal location: left upper quadrant Qualified Codes: R10.12 - Left upper quadrant pain Severity: Moderate Condition: Improved Seen By: Physician only Referrals: JOE DERGOOT DO (Family) Patient Instructions: Kidney Stones (ED) Problems/Meds/Labs Reviewed?: Yes Medications reviewed and manag: Yes Additional Instructions: Zofran 4 mg tablet every 6 hours as needed for nausea. Percocet 5 mg tablet, one to 2 tablets every 6 hours as needed for pain. Flomax 0.4 mg tablet daily. Until stone is passed. Strongly recommend that you see a urologist as this issue her second kidney stone and he will likely have more. Follow up care ordered?: Yes Mental Status: Alert, Oriented Scripts Ondansetron HCl (Ondansetron HCl) 4 Mg Tablet 1 TAB PO Q6HPRN Y for NAUSEA, #30 TAB 1 Refill Prov: DEBRA CHAPARRO MD 08/23/16 Oxycodone HCl/Acetaminophen (Percocet 5-325 mg Tablet) 5-325 Tablet 1-2 TAB PO QID for PAIN, #15 TAB Take 1 tablet, by mouth, 4 times a day. Prov: DEBRA CHAPARRO MD 08/23/16 Tamsulosin HCl (Flomax) 0.4 Mg Capsule 0.4 MG PO HS, #30 CAP Take 1 capsule, by mouth, one time a day at BEDTIME. Prov: DEBRA CHAPARRO MD 08/23/16 HPI - Abdominal Pain General Chief Complaint: Flank Pain Stated Complaint: BACK LEFT SIDE PAIN Time Seen by Provider: 06:27 HPI - Abdominal Pain Initial Comments 30-year-old male presents with left sided flank pain for the last week. He did have one previous kidney stone which was 6 mm on the right side and had to be treated with lithotripsy. He has had some blood in his urine, pain intermittently at this time he has very little pain. No fevers, no chills, no nausea or vomiting. No dysuria. Pain radiates around to the front and into his scrotum. Allergies: Coded Allergies: No Known Drug Allergies (Verified Allergy, Unknown, 07/04/08) Past History Patient Medical History Problem List Updates: e kidney stone Patient Surgical History Lithotripsy Vaccines Hx Influenza Vaccination: No Hx Pneumococcal Vaccination: No Hx Tetanus, Diptheria, Pertuss: Yes (07/04/08) Social History Smoking Status: Never smoker Substance Use Type: does not use Alcohol Intake: occasionally Record Review Pertinent history updated: Yes Review of Systems GI Upper Abdomen: see HPI General: see HPI Musculoskeletal General: see HPI All other Systems All Other Systems: Reviewed and Negative Physical Exam General General Nourishment: well nourished, well developed, appears stated age, no acute distress General Body Habitus: well groomed Vitals and Pain First Documented Vital Signs Date Time Temp Pulse Resp B/P Pulse Ox O2 Delivery O2 Flow Rate FiO2 08/23/16 06:20 98.8 85 16 137/96 100 Room Air Weight: Kilograms: 72.200 Height (feet): 5 Height (inches): 6.00 Triage Pain Scale: Normal Exams: Head: Normocephalic w/o trauma Chest/Resp: Clear all phillips, with good airflow, and symmetry bilaterally CV: Regular rate and rhythm, without murmur or gallop, Pulses 2+ all extremities, capillary refill, <2 seconds all ext., no pedal edema noted Abdomen: Bowel sounds positive, soft, non-tender, non-distended, no hepatosplenomegaly, masses or bruits noted Neurologic: Patient is alert, and oriented, cranial nerves, motor/sensory/ cerebellar, exams w/o gross deficits, to observation Psychiatric: Patient exhibits, appropriate attention, emotion and affect Differential Diagnoses Considering: Appendicitis, Bowel Obstruction, Constipation, Gastroenteritis, GI Bleed, Pancreatitis, Pyelonephritis, Renal Colic, Other (kidney stone) Progress Results/Orders Orders Procedure Category Date Status Time Iv Lock (Ed Only) EDM 08/23/16 Transmitted 06:27 Cbc W/Auto LAB 08/23/16 Complete Diff-Reflex Manual 06:27 Cmp - Comprehensive LAB 08/23/16 Complete Metabolic 06:27 Normal Saline (Normal PHA 08/23/16 Complete Saline Iv) 06:45 UA, LAB 08/23/16 Complete Dip&Micro(Complete) & 06:31 Ct Renal W/O Contrast CT 08/23/16 Taken 06:27 Lab Results Laboratory Tests Test 08/23/16 06:31 White Blood Count 7.8T/MM3 Red Blood Count 4.57M/MM3 Hemoglobin 16.0GM/DL Hematocrit 44.8% Mean Corpuscular Volume 98.0UM3 Mean Corpuscular Hemoglobin 35.0UUG Mean Corpuscular Hemoglobin Concent 35.7GM/DL RDW Standard Deviation 44.5FL Platelet Count 344T/MM3 Mean Platelet Volume 10.1UM3 Immature Granulocyte % (Auto) 0.1% Neutrophils (%) (Auto) 58.8% Lymphocytes (%) (Auto) 32.0% Monocytes (%) (Auto) 6.4% Eosinophils (%) (Auto) 2.3% Basophils (%) (Auto) 0.4% Absolute Immature Granulocyte (auto 0.01T/MM3 Absolute Neutrophils (auto) 4.6T/MM3 Absolute Lymphocytes (auto) 2.5T/MM3 Absolute Monocytes (auto) 0.5T/MM3 Absolute Eosinophils (auto) 0.2T/MM3 Absolute Basophils (auto) 0.0T/MM3 Urine Collection Type Voided-not cc-midstr Urine Color Yellow Urine Turbidity Clear Urine pH 5.5 Urine Specific [place] 1.020 Urine Protein Negative Urine Glucose (UA) Negative Urine Ketones Negative Urine Blood 3+ Urine Nitrite Negative Urine Bilirubin Negative Urine Urobilinogen 0.2EU/DL Urine Leukocyte Esterase Negative Urine RBC 5-10/HPF Urine WBC 1-3/HPF Urine Calcium Oxalate Crystals Moderate Urine Bacteria Negative Urine Mucus Present Urine Culture Indicated Cult not indicated Turbidity < 20 Sodium Level 147MEQ/L Potassium Level 4.2MEQ/L Chloride Level 105MEQ/L Carbon Dioxide Level 28MEQ/L Anion Gap 14MEQ/L Blood Urea Nitrogen 13.0MG/DL Creatinine 0.7MG/DL Glomerular Filtration Rate Calc 132 BUN/Creatinine Ratio 19RATIO Glucose Level 116MG/DL Calculated Osmolality 283MOSM/KG Calcium Level 9.4MG/DL Total Bilirubin 0.70MG/DL Icterus Index < 2 Aspartate Amino Transf (AST/SGOT) 24U/L Alanine Aminotransferase (ALT/SGPT) 47U/L Alkaline Phosphatase 76U/L Total Protein 7.7G/DL Albumin 4.5G/DL Globulin 3.2G/DL Albumin/Globulin Ratio 1.4RATIO Chemistry Specimen Hemolysis < 15 Medications Current ED Medications Sodium Chloride (Normal Saline IV) 1,000 ml @ 1,000 mls/hr Q1H ONCE IV Last administered on 5/4/17at 06:30; Start 08/23/16 at 06:45; Stop 08/23/16 at 07:44; Status DC Progress Progress Patient was given 1 L normal saline did not require pain medication during his visit, until he was preparing to leave.. He had appropriate lab values, CT scan of abdomen pelvis showed 3 mm stone left side. He did have blood in his urine. We'll discharge him with Flomax, a small amount of narcotic for pain, and nausea medication. Recommend he follow up with urology as he has had a previous stone. Patient did have an increase in pain prior to discharge. He was given 30 mg Toradol IV and Percocet 5 mg by mouth. DEBRA CHAPARRO MD August 23, 2016 07:44
--- NOTE | 2016-08-23 07:57 | DI ---
Indication: ITS.REASON: abdominal pain, history of kidney stone PROCEDURE: CT RENAL W/O CONTRAST: Encounter: Initial Comparison: None Technique: Axial CT images were performed through the abdomen and pelvis without intravenous contrast. Coronal and sagittal two-dimensional reformats. Automated Exposure Control and Iterative Reconstruction dose reducing techniques were utilized. Findings: The lung bases are clear. The unenhanced contours of the liver are unremarkable. The gallbladder, spleen, pancreas and adrenal glands are normal. Right kidney appears normal. Left kidney shows mild to moderate hydronephrosis with a tiny stone in the lower pole. There is mild to moderate left hydroureter to the level of an obstructing 4 mm proximal ureteral stone at the L4-L5 level. Bladder is normal. Prostate and rectum are unremarkable. No free fluid. No evidence of a bowel obstruction. The appendix is normal. Bone windows are within normal limits. Impression: Obstructing 4 mm left ureteral stone. There is a preliminary report by [employer]. .
[2016-08-23] MEDS ORDERED: OXYC1TAB8 PO (07:58)
[2016-08-23] MEDS ORDERED: TAMS-1 PO (07:58)
[2016-08-23] MEDS ORDERED: ONDA-55 PO (07:58)
[2016-08-23] MEDS ORDERED: OXYCODONE/APAP 5mg/325mg TABLET PO ONE (08:00)
[2016-08-23] MEDS ORDERED: KETOROLAC 30mg/ml INJECTION IV ONE (08:00)
--- NOTE | 2016-08-23 08:00 | NUR ---
MEDICATION TORADOL AND PERCOCET GIVEN PER ORDERS RATES PAIN /
[2016-08-23 08:25] VITALS: BP 148/87; PULSE 85; RESP 16; TEMP 98.8; O2SAT 100
--- NOTE | 2016-08-23 08:25 | NUR ---
DISMISS INSTRUCTIONS REVIEWED AND GIVEN TO PATIENT VERBALIZED UNDERSTANDING RX X 3 GIVEN STABLE, AMBULATES TO EXIT AND LEAVES WITH ADULT FEMALE
== END 2016-08-23 08:25 | disposition home or self-care (01) ==
LOC: ED 06:18
DX: N13.2 Hydronephrosis with renal and ureteral calculous obstruction (principal); Z87.442 Personal history of urinary calculi
CPT/HCPCS: 74176; 80053; 81001; 85025; 96361; 96374; 99284; J1885; J7030